=== PATIENT | female | born 1985 | race African-American/Black ===

== ENCOUNTER 2017-04-28 09:18 | Emergency (ER) | payer MEDICAID ==
[~2017-04-28] VITALS: Ht 167.6 cm; Wt 68.0 kg
[2017-04-28] MEDS ORDERED: ONDANSETRON 4MG ODT PO STA (10:49)
[2017-04-28] MEDS ORDERED: ALBUTEROL (0.083%) 2.5MG/3ML NEB HHN STA (10:49)
[2017-04-28] MEDS ORDERED: DICYCLOMINE 10 MG/5 ML ORAL SYR PO STA (10:49)
[2017-04-28] MEDS ORDERED: IPRATROPIUM BROMIDE (0.02%) 0.5MG/2.5ML NEB HHN STA (10:49)
[2017-04-28] MEDS ORDERED: ACETAMINOPHEN 650MG/20.3ML UDC PO ONE (11:00)
[2017-04-28 12:16] VITALS: BP 129/90
== END 2017-04-28 12:41 | disposition home or self-care (01) ==
LOC: ER 10:19
DX: J06.9 Acute upper respiratory infection, unspecified (principal); R19.7 Diarrhea, unspecified; R11.2 Nausea with vomiting, unspecified; J45.909 Unspecified asthma, uncomplicated
CPT/HCPCS: 81025; 94640; 99284; J7611; Q0162; Z7610

== ENCOUNTER 2017-06-11 04:43 | Emergency (ER) | payer MEDICAID ==
[~2017-06-11] VITALS: Ht 157.5 cm; Wt 70.0 kg
[2017-06-11 04:50] VITALS: BP 103/73
== END 2017-06-11 08:04 | disposition left against medical advice (07) ==
LOC: ER 04:43
DX: J02.9 Acute pharyngitis, unspecified (principal); Z53.21 Procedure and treatment not carried out due to patient leaving prior to being seen by health care provider

== ENCOUNTER 2017-10-13 20:17 | Emergency (ER) | payer MEDICAID ==
[~2017-10-13] VITALS: Ht 157.5 cm; Wt 82.0 kg
[2017-10-13 23:30] VITALS: BP 108/69
== END 2017-10-13 23:32 | disposition left against medical advice (07) ==
LOC: ER 21:38
DX: Z53.21 Procedure and treatment not carried out due to patient leaving prior to being seen by health care provider (principal)

== ENCOUNTER 2018-10-17 15:48 | Observation (INO) | payer MEDICAID | END 2018-10-17 20:05 | disposition home or self-care (01) | LOC: 8 EST LDRP 15:48 | PROVIDERS: ADMIT Obstetrics & Gynecology; ATTEND Obstetrics & Gynecology | DX: O26.852 Spotting complicating pregnancy, second trimester (principal); Z3A.25 25 weeks gestation of pregnancy | CPT/HCPCS: 76805; G0378; 99281 ==